=== PATIENT | male | born 1945 | race Caucasian/White ===

== ENCOUNTER 2016-07-13 05:03 | Day surgery (SDC) | payer MEDICARE ==
[2016-07-12 08:23] LABS: CALC OSMOLALITY 289 mosm/kg (275-300); CALCIUM 9.3 mg/dL (8.5-10.1); CARBON DIOXIDE 29.9 mmol/L (21.0-32.0); CHLORIDE - SERUM 107 mmol/L (98-107); GLUCOSE 99 mg/dL (74-106); POTASSIUM - SERUM 3.8 mmol/L (3.5-5.1); SODIUM 145 mmol/L (136-145); UREA NITROGEN 14 mg/dL (7-18); eGFR NON AFRICAN AMERICAN 78 mL/min (90-120)
[2016-07-12 08:25] LABS: APTT 27.8 SECONDS (22.8-39.4); INR 0.95 (0.85-1.17); PROTIME 12.5 SECONDS (11.6-15.0)
[2016-07-12 08:42] LABS: BASOPHILS 0.4 % (0.0-2.0); HEMATOCRIT 39.6 % (42.0-54.0); HEMOGLOBIN 13.5 g/dL (13.5-17.5); IMMATURE GRANULOCYTES 0.1 % (0-5); LYMPHOCYTES 19.3 % (15-50); MCH 32.5 pg (26.0-34.0); MCHC 34.1 g/dL (31.0-37.0); MCV 95.2 fL (80.0-100.0); MEAN PLATELET VOLUME 9.7 fL (7.4-10.4); NEUTROPHILS 68.2 % (40-80); PLATELET COUNT 306 10x3/uL (130-400); RBC 4.16 10x6/uL (4.20-6.10); RDW 13.3 % (11.5-14.5)
[~2016-07-13] VITALS: Ht 177.8 cm; Wt 77.1 kg
[~2016-07-13 05:03] MED LIST: BAYER CHEWABLE81 MG PO; CADUET 10 MG/201 TAB; PLAVIX75 MG PO; PRILOSEC20 MG PO; UROXATRAL10 MG PO
[2016-07-13 07:57] VITALS: BP 135/74; Ht 177.8 cm; Wt 77.1 kg
--- NOTE | 2016-07-13 10:56 | NUR ---
DR WOODALL VIEWED THE XRAY AFTER THE PROCEEDURE
--- NOTE | 2016-07-13 12:38 | NUR ---
Called to surgery per request of Dr Dsouza to assist with bronchoscope and biopsies.
--- NOTE | 2016-07-13 13:18 | NUR ---
1230--IV DC'D, PT UP TO DRESS AT THIS TIME. JOSE ARMANDO COTTRELL 1245--DISCHARGE INSTRUCTIONS GIVEN, PT VERBALIZES UNDERSTANDING. PT OFF UNIT VIA WC. JOSE ARMANDO COTTRELL
--- NOTE | 2016-08-22 10:17 | HP ---
PATIENT: ZAHEER REY MEDICAL RECORD: [id number] ACCOUNT: [id number] LOCATION:[facility] : 41 ADMISSION DATE: 07/13/16 HISTORY AND PHYSICAL EXAMINATION CHIEF COMPLAINT: Mass. HISTORY OF PRESENT ILLNESS: The patient has in an endobronchial mass in the takeoff of the left upper and left lower lobes. These were 3.5 cm in size. I am going to plan for an endoscopic resection by interventional bronchoscopy. I may use a basket, cold endoscopic biopsies or the argon plasma general pediatrician or variety of methods in order to remove this mass. This hopefully will be an excisional biopsy. The risks, possible complications and alternatives to procedure were explained to the patient. He elects to proceed. ALLERGIES: No known drug allergies. HOME MEDICATIONS: Amlodipine, atorvastatin, aspirin, Uroxatral, Plavix, Prilosec. The patient has been off Plavix since 07/10/2016. I have told the patient I want him to stay off Plavix for several days after his endoscopic procedure. SOCIAL HISTORY: Nonsmoker. PAST MEDICAL AND SURGICAL HISTORY: Peripheral vascular disease, peripheral arterial disease, gastroesophageal reflux, hypertension, carotid history of carotid arterial disease. REVIEW OF SYSTEMS: Negative for CVA or seizures. Negative for diabetes or thyroid problems. Negative for renal disease or hepatitis. PHYSICAL EXAMINATION: GENERAL: The patient does not appear acutely ill. He does not appear chronically ill. VITAL SIGNS: Reviewed. HEAD: External ears appear normal. EYES: Extraocular movements are intact. NECK: Trachea is midline. CHEST: No intercostal retractions. PULMONARY: Nonlabored and no stridor. ABDOMEN: Nontender. EXTREMITIES: No peripheral cyanosis. INTEGUMENT: No rash and no ulcerations. IMPRESSION: Endobronchial lesion, left lung. PLAN: Endoscopic resection. TRANSINT:[id number] Voice Confirmation ID: [id number] DOCUMENT ID: [id number] HISTORY AND PHYSICAL [id number] ZAHEER REY, KEN SOSA at 1017 CC: REINA SOSA MD, ERICK QUIROZ MD, ZAEHER DE SOUZA MD and ADELA,[id number] DICTATION DATE: 07/13/16 1101 [employer] MEDIA SPECIALIST: 07/13/16 1118 [facility] 07/13/16 [id number] [place] [address]
--- NOTE | 2016-08-22 10:17 | OP ---
PATIENT NAME: ZAHEER REY MEDICAL RECORD: [id number] :41 LOCATION:[facility] ADMISSION DATE: SURGEON: KEN WOODALL MD DATE OF OPERATION: 07/13/2016 PREOPERATIVE DIAGNOSIS: Endobronchial lesion takeoff of the left upper and left lower lobes. POSTOPERATIVE DIAGNOSIS: Endobronchial lesion takeoff of the left upper and left lower lobes, 3.5 mm. PROCEDURE: Bronchoscopic resection of a pedunculated lesion, 3.5 mm at the takeoff of the left mainstem and left lower lobe bronchus. This was removed utilizing cold endoscopic biopsies well as a basket 2.5 mm and then ablation of the base of the polyp with the argon plasma stage setting painter apprentice, which also controlled minimal amount of bleeding that was occurring. OPERATIVE COURSE: The patient was conveyed to the operating room electively on 07/13/2016. General anesthesia was induced by the anesthesia staff. An 8.5 mm endotracheal tube was inserted. A bronchoscopic adapter was applied. Through the bronchoscopic adapter, I advanced a well-lubricated therapeutic bronchoscope. I first examined the right lung and then the left lung. The mass was easily identifiable. I advanced a 2.4 mm urology basket. I was able to remove a portion of this pedunculated mass with the basket. I felt that additional biopsies should be cold biopsies. I biopsied the lesion several times until it appeared to be completely gone, so this was an excisional biopsy or resective procedure. I then cauterized the base of the lesion as it was bleeding and I want to ensure that any residual polypoid tissue had been removed. I utilized the argon plasma stage setting painter apprentice with the esophageal setting in the pulse mode. There was no further bleeding. I noted no evidence of a persistent polyp. The bronchoscope was then withdrawn under direct vision. The patient was then extubated and conveyed to post-anesthesia care unit where he was in stable condition. TRANSINT:[id number] Voice Confirmation ID: [id number] DOCUMENT ID: [id number] KEN WOODALL MD at 1017 CC: REINA SOSA MD, ERICK QUIROZ MD, ZAHEER DE SOUZA MD and ADELA,[id number] DICTATION DATE: 07/13/16 1104 TONGUE PRESSER: 07/13/16 1338 [facility] 07/13/16 [facility] [address] [place] [address]
== END 2016-07-13 12:45 | disposition home or self-care (01) ==
LOC: D.OPS 05:03 → D.PAN 09:45 → D.OPS 12:45
PROVIDERS: Anesthesiology
DX: J98.09 Other diseases of bronchus, not elsewhere classified (principal); I10 Essential (primary) hypertension; K21.9 Gastro-esophageal reflux disease without esophagitis

== ENCOUNTER → 2016-10-09 12:24 | Outpatient (CLI) | payer MEDICARE ==
[2016-07-13 07:57] VITALS: BMI 24.4
== END | disposition home or self-care (01) ==
LOC: D.US 12:24
DX: I70.223 Atherosclerosis of native arteries of extremities with rest pain, bilateral legs (principal)

== ENCOUNTER → 2016-11-01 09:53 | Outpatient (CLI) | payer MEDICARE ==
[2016-07-13 07:57] VITALS: BMI 24.4
== END | disposition home or self-care (01) ==
LOC: D.CT 10-30 09:00
DX: I73.9 Peripheral vascular disease, unspecified (principal)

== ENCOUNTER 2017-05-02 05:38 | Outpatient (CLI) | payer MEDICARE ==
--- NOTE | ~2017-05-02 | HEMODYNAMI ---
PATIENT:ZAHEER REY MEDICAL RECORD: [id number] : 41 LOCATION:[facility] ADMISSION DATE: 05/02/17 Generatedon:05/02/20179:43 Patient name: ZAHEER REY Patient #: [id number] SSN: DO B: 1945 Date of study: 05/02/2017 Page: Of Hemodynamic Procedure Report Patient Data Patient Demographics Procedure consent was obtained First Name: ZAHEER Gender: Male Last Name: CANDIDO : 1945 [facility] Initial: ESTEBAN Age: 72 year(s) Patient #: [id number] Race: Unknown Additional ID: [id number] Contact details Address: [address] State: [place] City: [place] Zip code: [address] Admission Admission Data Admission Date: 05/02/2017 Admission Time: 5:38 Procedure Procedure Types Cath Procedure Peripheral Cath Diagnostic Procedure Abd/Extremity Extremities Procedure Description Procedure Date Procedure Date: 05/02/2017 Procedure Start Time: 8:46 Procedure Staff Name Function Jon Barlow MD Performing Physician Carole Reyes RN Nurse Yanci Yanez RT Scrub Kb Mendez RT Monitor Procedure Data Cath Procedure Fluoroscopy Diagnostic fluoroscopy Total fluoroscopy Time: 3.1 time: 3.1 min min Diagnostic fluoroscopy Total fluoroscopy dose: 361 dose: 361 mGy mGy Contrast Material Contrast Material Type Amount (ml) Isovue 300 110 Entry Location Entry Primary Successful Side Size Upsize Upsize Entry Closure Succes sful Closure Location (Fr) 1 (Fr) 2 (Fr) Remarks Device Remarks Femoral Right 5 Fr Exoseal artery Diagnostic catheters Device Type Used For End Catheter Placement Merit ULTRA BOLUS FLUSH 5Fr 65CM catheter Merit Impress KA 2 5Fr 40CM catheter Procedure Medications Medication Administration Route Dosage Versed I.V. 1 mg Fentanyl I.V. 50 mcg Heparin Flush Bag added to field 2 bags (1000units/500ml NS) Heparin Flush Bag added to field 1 bags (1000units/500ml NS) unlisted medication added to field 20 Versed I.V. 1 mg Fentanyl I.V. 50 mcg Hemodynamics Rest Heart Rate: 62 (bpm) Snapshots Pre Cath Intra NCS Post Cath Vital Signs Time Heart Resp SPO2 etCO2 NIBP (mmHg) Rhythm Pain Sedation Rate (ipm) (%) (mmHg) Status Level (bpm) 8:39:43 72 12 97 29.5 130/71(106) NSR 0 (11) 10(A) , No pain 8:44:01 73 13 96 30.2 133/65(97) NSR 0 (11) 10(A) , No pain 8:48:15 74 14 95 27.9 129/67(100) NSR 0 (11) 10(A) , No pain 8:52:29 75 17 94 30.2 120/67(97) NSR 0 (11) 10(A) , No pain 8:56:43 72 10 95 26.4 110/59(90) NSR 0 (11) 10(A) , No pain 9:00:51 70 12 95 28.7 116/63(90) NSR 0 (11) 10(A) , No pain 9:05:01 69 12 95 27.9 114/62(93) NSR 0 (11) 10(A) , No pain 9:09:10 69 14 96 30.2 113/65(92) NSR 0 (11) 10(A) , No pain 9:13:20 71 11 95 32.5 116/61(90) NSR 0 (11) 10(A) , No pain 9:17:28 69 11 94 36.3 117/67(92) NSR 0 (11) 10(A) , No pain 9:21:40 71 12 96 30.2 116/62(96) NSR 0 (11) 10(A) , No pain 9:25:52 68 17 96 32.5 114/62(93) NSR 0 (11) 10(A) , No pain 9:30:02 69 12 96 31.7 116/60(95) NSR 0 (11) 10(A) , No pain 9:34:14 67 21 96 34.7 117/62(99) NSR 0 (11) 10(A) , No pain 9:38:26 69 16 96 31 119/62(94) NSR 0 (11) 10(A) , No pain 9:42:35 69 13 95 30.2 116/67(91) NSR 0 (11) 10(A) , No pain Medications Time Medication Route Dose Verified Delivered Reason Notes Effecti veness by by 8:45:28 lido added 20ml Jon Jon to vial Cain Barlow MD field 8:46:41 Versed I.V. 1 mg Jon Lam for Eric Barlow RN sedation 8:46:56 Fentanyl I.V. 50 Jon Carole for mcg Eric Barlow RN sedation 8:57:48 Heparin Flush added 2 Jon Webb Bag to bags Cain Barlow MD (1000units/500ml field SOSA NS) 8:58:01 Heparin Flush added 1 Jon Webb Bag to bags Cain Barlow MD (1000units/500ml field SOSA NS) 9:08:56 Versed I.V. 1 mg Jon Lma for Eric Barlow RN sedation 9:09:07 Fentanyl I.V. 50 Jon Carole for Eric Fuentes RN sedation Procedure Log Time Note 8:09:48 Kb Mendez RT (R) (CV) sent for patient. Start room use. 8:09:55 Time tracking: Regular hours 8:10:03 Plan of Care:Hemodynamics will remain stable., Cardiac rhythm will remain stable., Comfort level will be maintained., Respiratory function will remain adequate., Patient/ family verbilizes understanding of procedure., Procedure tolerated without complication., Recovers from procedure without complications.. 8:10:09 Patient received from Outpatients to IR Alert and oriented. Tansferred to table in Supine position. 8:10:12 Signed procedure consent form obtained from patient. 8:10:13 Correct patient and procedure confirmed by team. 8:10:14 ECG and BP/O2 sat monitors applied to patient. 8:10:15 Full Disclosure recording started 8:10:15 8:10:19 H&P Date Dictated: 05/02/2017 H&P Addendum completed by physician on day of procedure. (MUST COMPLETE FOR ALL OUTPATIENTS). 8:10:22 Pre-procedure instructions explained to patient. 8:10:23 Pre-op teaching completed and patient verbalized understanding. 8:10:32 Family in patients room. 8:10:35 Patient NPO since Midnight. 8:10:39 Is the patient allergic to Iodine/contrast media? No. 8:10:40 Is patient on blood thinner?Yes 8:10:42 ACC The patient was administered the following blood thiners within the last 24 hours: ACCPlavix 8:10:45 Patient diabetic? No. 8:10:46 8:10:46 ----Pre-sedation anethsthesia assessment.---- 8:10:54 Previous problem with sedation/anesthesia? No ? 8:10:56 Snore? No 8:10:57 Sleep apnea? No 8:10:59 Deviated septum? No 8:11:00 Opens mouth fully? Yes 8:11:01 Sticks out tongue? Yes 8:11:03 Airway obstruction? No ? 8:11:06 8:11:06 Dentures? No ? 8:14:43 Pre procedure: right dorsailis pedis pulse 1+ Palpable, but thready & weak; easily obliterated 8:14:47 Pre procedure: left dorsailis pedis pulse 1+ Palpable, but thready & weak; easily obliterated 8:14:54 Pre procedure: right posterior tibial pulse Doppler 8:15:03 Pre procedure: left posterior tibial pulse 1+ Palpable, but thready & weak; easily obliterated 8:15:10 Patient pain scale 0/10 no pain. 8:15:21 IV patent on arrival in right forearm with 0.9% NaCl at O. 8:15:26 Use device set IR Diagnostic 8:15:28 Sterile Angiographic Pack opened to sterile field. 8:15:28 Bag Decanter opened to sterile field. 8:15:29 Acist Manifold opened to sterile field. 8:15:30 Acist Hand Control opened to sterile field. 8:15:30 Acist Syringe opened to sterile field. 8:38:28 Right groin area was prepped with chlora-prep and draped in sterile fashion 8:38:30 Alarms reviewed by R. N. 8:38:31 Sharps counted by scrub and verified by R.N. 8:38:34 Vital chart was started 8:38:35 Baseline sample Acquired. 8:38:38 Rhythm: sinus rhythm 8:44:46 Physician arrived 8:44:46 --------ALL STOP TIME OUT------ 8:44:47 Final Timeout: patient, procedure, and site verified with staff and physician. All members of the team are in agreement. 8:44:50 Right groin site verified by team. 8:44:55 Sedation plan: IV Moderate Sedation Versed, Fentanyl 8:45:28 lido 20ml vial added to field was administered by Jon Barlow MD; ; 8:45:55 Procedure started. 8:46:13 Local anesthetic to right femoral artery with Lidocaine 1% by Jon Barlow MD.INITIAL ACCESS ONLY 8:46:19 Efe DOC .035 guide wire opened to sterile field. 8:46:19 Terumo 5Fr [place] Sheath opened to sterile field. 8:46:20 Micropuncture VSI 4FR kit opened to sterile field. 8:46:20 Efe HUGHES 260 guide wire opened to sterile field. 8:46:20 [place] Sci Amplatz Super Stiff 75CM guide wire opened to sterile field. 8:46:21 TUBING, CONTRAST INJCTN HI PRES opened to sterile field. 8:46:34 A 5 Fr sheath was inserted into the Right Femoral artery 8:46:41 Versed 1 mg I.V. was administered by Carole Reyes RN; for sedation; 8:46:56 Fentanyl 50 mcg I.V. was administered by Carole Reyes RN; for sedation; 8:49:28 A [employer] ULTRA BOLUS FLUSH 5Fr 65CM catheter was advanced over the wire and used for . 8:57:48 Heparin Flush Bag (1000units/500ml NS) 2 bags added to field was administered by Jon Barlow MD; ; 8:58:01 Heparin Flush Bag (1000units/500ml NS) 1 bags added to field was administered by Jon Barlow MD; ; 9:02:23 Micropuncture VSI 4FR kit opened to sterile field. 9:05:18 A [employer] Impress KA 2 5Fr 40CM catheter was advanced over the wire and used for . 9:08:56 Versed 1 mg I.V. was administered by Carole Reyes RN; for sedation; 9:09:07 Fentanyl 50 mcg I.V. was administered by Carole Reyes RN; for sedation; 9:11:01 Terumo ANGLE 180L glide wire opened to sterile field. 9:25:41 Cordis 5Fr Exoseal opened to sterile field. 9:25:54 Sheath removed intact; hemostasis achieved with Exoseal to the Right Femoral artery. 9:25:57 Procedure ended.(Physican Out) 9:26:20 Fluoroscopy time 03.10 minutes. 9:26:25 Flurop Dose total: 361 9:26:25 Fluoroscopy dose: 361 mGy 9:26:31 Contrast amount:Isovue 300 110ml. 9:26:33 Sharps counted by scrub and verified by R.N. 9:26:35 Insertion/operative site no bleeding no hematoma. 9:26:44 Post-op/insertion site Right Femoral artery dressed using a 4 x 4 and Tegaderm. 9:26:51 Post right femoral artery:stable 9:27:09 Post Procedure Pulses reassessed and unchanged 9:27:18 Post procedure rhythm: unchanged. 9:27:20 Post procedure instruction explained to patient.Patient verbalizes understanding. 9:27:21 Patient needs reinforcement of post procedure teaching. 9:28:29 Procedure and supply charges have been captured, reviewed, submitted and are correct. 9:43:04 Report given to Outpatients. 9:43:09 Patient transfered to Outpatients with Stretcher. 9:43:49 Vital chart was stopped Device Usage Item Name Manufacture Quantity Catalog Number Hospital Part Current Min imal Lot# / Charge Number Stock Stock Serial# Code Sterile Cardinal 1 [id number] 5 Angiographic Health Pack Bag Decanter Microtek 1 [id number] 50596 529358 5 Medical Inc. Acist Acist 1 27586 812231 539807 905935 5 Manifold Medical Systems Inc Acist Hand Acist 1 41703 809113 400868 106301 5 Control Medical Systems Inc Acist Syringe Acist 1 56607 579904 889806 248893 20 Medical Systems Inc Cook DOC .035 Cook Medical 1 [id number] 956134 538284 5 [id number] guide wire Terumo 5Fr Terumo 1 [id number] 085584 764634 296034 40 [place] Sheath Micropuncture VSI VASCULAR 2 7266V 831557 303591 5 VSI 4FR kit SOLUTIONS Cook HUGHES Cook Medical 1 [id number] 425472 538922 5 [id number] 260 guide wire [place] [employer] [place] 1 [id number] 968237 612669 621204 5 [id number] Amplatz Super Scientific Stiff 75CM guide wire TUBING, Merit 1 [id number] 430305 270181 587801 5 CONTRAST Medical INJCTN HI PRES Merit ULTRA Merit 1 [id number] 840968 938335 5 BOLUS FLUSH Medical 5Fr 65CM catheter Merit Impress Merit 1 [id number] 800916 269890 5 KA 2 5Fr 40CM Medical catheter Terumo ANGLE Terumo 1 [id number] 606136 730211 368908 5 180L glide wire Cordis 5Fr Cardinal 1 EX500 814540 662689 095439 10 [id number] [facility] Health Signature Audit [place] Stage Time Signature Unsigned Intra-Procedure 05/02/2017 Kb 9:43:39 AM [place] RT (R) (CV) Signatures Monitor : Kb Signature : Andrea RT Date : Time : [address] [place] [address]
[2017-05-02 06:46] VITALS: BP 131/73; BMI 24.4
[2017-05-02 07:19] LABS: ANION GAP 15.1 mmol/L (8-16); CALCIUM 8.6 mg/dL (8.5-10.1); CARBON DIOXIDE 25.5 mmol/L (21.0-32.0); CREATININE - SERUM 1.2 mg/dL (0.6-1.3); POTASSIUM - SERUM 3.6 mmol/L (3.5-5.1)
[2017-05-02 07:21] LABS: INR 1.06 (0.85-1.17); PROTIME 13.6 SECONDS (11.6-15.0)
[2017-05-02 07:55] LABS: BASOPHILS 0.4 % (0-2); EOSINOPHILS 3.4 % (0-7); HEMOGLOBIN 13.4 g/dL (13.5-17.5); IMMATURE GRANULOCYTES 0.1 % (0-5); MCH 33.3 pg (26.0-34.0); MCHC 34.4 g/dL (31.0-37.0); MCV 96.8 fL (80.0-100.0); MONOCYTES 14.1 % (2-11); PLATELET COUNT 293 10x3/uL (130-400); RBC 4.03 10x6/uL (4.20-6.10); RDW 12.4 % (11.5-14.5); WBC 7.1 10x3/uL (4.8-10.8)
--- NOTE | 2017-05-02 11:35 | NUR ---
1000--ALL VITAL SIGNS CHARTED ON POST PROCEDURE VITAL SIGN SHEET ON CHART. JOSE ARMANDO COTTRELL
--- NOTE | 2017-05-02 17:26 | NUR ---
1000--ALL VITAL SIGNS CHARTED ON POST PROCEDURE VITAL SIGN SHEET ON CHART. JOSE ARMANDO COTTRELL 1442--IV DC'D. JOSE ARMANDO COTTRELL 1500--DISCHARGE INSTRUCTIONS GIVEN, PT VERBALIZES UNDERSTANDING. PT OFF UNIT VIA WC. JOSE ARMANDO COTTRELL
== END 2017-05-02 15:00 | disposition home or self-care (01) ==
LOC: D.OPS 05:38
PROVIDERS: General Practice
DX: I70.211 Atherosclerosis of native arteries of extremities with intermittent claudication, right leg (principal); Z01.812 Encounter for preprocedural laboratory examination

== ENCOUNTER → 2017-05-07 12:20 | Outpatient (CLI) | payer MEDICARE ==
[2017-05-02 06:46] VITALS: BMI 24.4
== END | disposition home or self-care (01) ==
LOC: D.US 12:20
DX: I65.23 Occlusion and stenosis of bilateral carotid arteries (principal)

== ENCOUNTER → 2017-07-16 13:55 | Outpatient (CLI) | payer MEDICARE | END | disposition home or self-care (01) | LOC: D.MRI 09:00 | DX: M54.16 Radiculopathy, lumbar region (principal) ==

== ENCOUNTER 2017-08-13 08:21 | Day surgery (SDC) | payer MEDICARE ==
[~2017-08-13] VITALS: Ht 177.8 cm; Wt 77.1 kg
--- NOTE | ~2017-08-13 | HP ---
PATIENT: ZAHEER REY MEDICAL RECORD: [id number] ACCOUNT: [id number] LOCATION:D.OPS : 43 ADMISSION DATE: 08/13/17 HISTORY AND PHYSICAL EXAMINATION ZAHEER Martin (72yo, M) ID# [id number]. Date/Time07/18/2017 09:70NQMHM1943[facility] Dept.NPP_[facility] ClinicProviderEDSABRINA CHAPMAN MDInsuranceMed Primary: [employer] (MEDICARE REPLACEMENT/ADVANTAGE - PPO) Insurance # : [id number] Policy/Group # : [id number] Referring Provider Name : ZAHEER DE SOUZA Employer Name : RETIRED Prescription: CMX - Member is eligible. Chief Complaint Followup: Carotid artery occlusion Followup: Carcinoid bronchial adenoma Followup: Degeneration of lumbar intervertebral disc s/p bronchoscopy/[facility] 05/07/16 s/p art w int/Dr Barlow 05/02/17 RTC MRI lumbar spine/for bronch November 2017 Patient's Care Team Referring Provider (): ZAHEER DE SOUZA: [address] [place] [address] , [address], [place] [address], , Other: CHASE CHAPMAN MD: [address] [facility] [address], [place] [address], , Patient's Pharmacies [facility] [address] [facility] [address], [facility] [place] [address], , Vitals BP:108/62 sitting L arm 07/18/2017 10:04 amBP Cuff Size:adult 07/18/2017 10:04 amHR:80,reg 07/18/2017 10:04 amHt:5 ft 10 in 07/18/2017 10:02 amWt:175 lbs 07/18/2017 10:04 amNotes:here for MRI results 07/18/2017 10:05 amBMI:25.1 07/18/2017 10:04 amAllergies Reviewed Allergies NKDAMedications Reviewed Medications Adult Low Dose Aspirin 81 mg tablet,delayed release Take 1 tablet(s) every day by oral route.05/18/14 enteredLoren Tellalfuzosin ER 10 mg tablet,extended release 24 hr Take 1 tablet(s) every day by oral route.04/25/17 filledCaremarkamlodipine 10 mg-atorvastatin 20 mg tablet Take 1 tablet(s) every day by oral route.05/17/17 filledCaremarkclopidogrel 75 mg tablet TAKE ONE TABLET BY MOUTH EVERY DAY06/05/17 filledCaremarkFlucelvax Quad 2409-2168 60 mcg (15 mcg x 4)/0.5 mL IM byrradvrzj14/24/18 filledCaremarkomeprazole 20 mg capsule,delayed release Take 1 capsule(s) every day by oral route for 90 days.05/03/17 filledCaremarkPrevnar 13 (PF) 0.5 mL intramuscular /24/18 filledCaremark Some medications listed in Document: #[id number] could not be added to this patient's chart. Please review this document and add these medications to the patient's chart manually as needed. Vaccines Reviewed Vaccines HISTORY AND PHYSICAL [id number] ZAHEER REY Vaccine TypeDateAmt.RouteSiteLot #Mfr.Exp. DateDate on VISVIS EvcoiLryblrnqdaAnfynqbdr37/18/160.5 mLIntramuscularLeft Mzlrdey08fb6HpiopPfxbeQgepg36 //12/1509/18/16Kim MorganSome vaccines listed in Document: #[id number] could not be added to this patient's chart. Please review this document and add these vaccines to the patient's chart manually as needed. Problems Reviewed Problems Degeneration of lumbar intervertebral disc - Onset: 05/09/2017 Peptic ulcer Gastroesophageal reflux disease Carcinoid bronchial adenoma Infected sebaceous cyst Carcinoma of prostate Carotid artery occlusion Pure hypercholesterolemia Carotid atherosclerosis Peripheral vascular disease Carotid bruit Essential hypertension Carotid artery stenosis Family History Reviewed Family History Mother- Heart diseaseBrother- Heart diseasefather - Alzheimer'sSocial History Reviewed Social History General Education: 4 Year College Marital status: Exercise level: Occasional Smoking Status: Former smoker Smoker (1 PPD) Alcohol intake: Moderate Caffeine intake: Moderate Tobacco-years of use: 45 Surgical History Reviewed Surgical History Bronchoscopy w/ biopsy - 07/13/2016 Bronchoscopy w/ biopsy - 07/13/2016 Bronchoscopy w/ biopsy - 07/13/2016 Bronchoscopy w/ biopsy - 07/13/2016 Bronchoscopy w/ biopsy - 07/13/2016 Carotid Endarterectomy - 06/24/2015 Excision, sebaceous cyst - 06/11/2014 Vascular Surgery - 2010 - fem-fem bypass Past Medical History Reviewed Past Medical History Bladder Problems: Y - incomplete emptying, frequency Cancer: Y - prostate - radiation in 2010 Coronary Artery Disease: Y GERD: Y High Blood Pressure: Y HISTORY AND PHYSICAL [id number] ZAHEER REY Notes: YUNIOR Documents for Discussion N/A Screening None recorded. HPI Peripheral Vascular Disease Reported by patient. Severity: not limiting Associated Symptoms: no weakness; no numbness; no paresthesias; no skin discoloration; no fever lumbar disc disease Bronchial adenoma Carotid artery disease ROS Patient reports no fever, no night sweats, no significant weight gain, no significant weight loss, and no exercise intolerance. He reports no dry eyes, no irritation, and no vision ch sherrie. He reports no difficulty hearing and no ear pain. He reports no frequent nosebleeds and no nose/sinus problems. He reports no sore throat, no bleeding gums, no snoring, no dry mouth, no mouth ulcers, no oral abnormalities, and no teeth problems. He r eports no chest pain, no arm pain on exertion, no shortness of breath when walking, no shortness of breath when lying down, no palpitations, and no known heart murmur. He reports no cough, no wheezing, no shortness of breath, and no coughing up blood. He r eports no abdominal pain, no vomiting, normal appetite, no diarrhea, not vomiting blood, no nausea, and no constipation. He reports no incontinence, no difficulty urinating, no hematuria, and no increased frequency. He reports no muscle aches, no muscle w e akness, no arthralgias/joint pain, no back pain, and no swelling in the extremities. He reports no abnormal mole, no jaundice, and no rashes. He reports no loss of consciousness, no weakness, no numbness, no seizures, no dizziness, and no headaches. He re p orts no depression, no sleep disturbances, feeling safe in relationship, and no alcohol abuse. He reports no fatigue. He reports no swollen glands and no bruising. He reports no runny nose, no sinus pressure, no itching, no hives, and no frequent sneezing . Physical Exam Patient is a 72-year-old male. Constitutional: General Appearance well nourished and developed and healthy-appearing. Level of Distress NAD. Ambulation ambulating normally. Cardiovascular: Apical Impulse not displaced or no thrill. Heart Auscultation normal s1 and s2; no murmurs, rubs, or gallops; and RRR. Arterial Pulses no abdominal aorta bruits, femoral bruits, or popliteal bruits and 2+ bilateral, carotid 2+ bilateral, femoral 2+ bilateral, popliteal 2+ bilateral, and dorsalis pedis diminished (on the right). Edema no edema or varicosities. Lungs: Repiratory Effort no dyspnea. Percussion no hyperresonance or dullness or flatness. Auscultation no wheezing, rhonchi, or rales / crackles and breathing sounds normal, good air movement, and CTA except as noted. Abdomen: Bowl Sounds normal. Inspection and Palpation no tenderness, guarding, masses, or rebound tenderness and soft and non-distended. Liver non-tender and no hepatomegaly. Spleen non-tender and no splenomegaly. Hernia none palpable. Ears, Nose, Throat: Hearing grossly normal hearing. Nose no external nose lesion. HISTORY AND PHYSICAL [id number] ZAHEER REY Lips, Teeth, and Gums no mouth or lip ulcers. Oropharynx: moist mucous membranes. Musculoskeletal System: Gait And Stance normal gait and stance. Digits and Nails n ormal nails and no cyanosis. Joints, Bones, and Muscles normal strength and movement of all extremities. Neurologic: Cranial Nerves grossly intact. Reflexes DTRs 2+ bilaterally throughout. Sensation grossly intact. Lymph Nodes: Lymph Nodes no cervical LAD, supraclavicular LAD, axillary LAD, or inguinal LAD. Eyes: Lids and Conjunctivae no discharge or pallor and non-injected. Pupils PERRLA. Cornea grossly intact. EOM EOMI. Lens clear. Sclerae non-icteric. Neck: Neck no masses, enlarged lymph nodes, or carotid bruits and supple and trachea midline. Thyroid no enlargement or nodules and non-tender. Skin: Inspection and Palpation no rash, lesions, ulcers, jaundice, or abnormal nevi. Assessment / Plan severe lumbar disc disease Carotid artery disease stable Need bronchoscopy for follow-up bronchial adenoma 1. Carotid artery occlusion - total occlusion of the right internal carotid artery Status post left carotid endarterectomy I65.23: Occlusion and stenosis of bilateral carotid arteries 2. 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 Degeneration of lumbar intervertebral disc M51.36: Other intervertebral disc degeneration, lumbar region Discussion Notes schedule bronchoscopy CHASE CHAPMAN MD at 1409 CC: [id number] DICTATION DATE: 07/18/1730 [employer] SUPERVISOR: DM 08/12/17 0951 DEP SDC 08/13/17 [facility] [address] [place] [address]
--- NOTE | ~2017-08-13 | OP ---
PATIENT NAME: ZAHEER REY MEDICAL RECORD: [id number] :41 LOCATION:[facility] ADMISSION DATE: SURGEON: FIDEL SHARIF MD DATE OF OPERATION: 08/13/2017 SURGEON: Fidel Sharif MD ANESTHESIA: General, Dr. Juarez. OPERATION PERFORMED: Flexible fiberoptic bronchoscopy. PREOPERATIVE DIAGNOSIS: History of carcinoid tumor of left bronchus. POSTOPERATIVE DIAGNOSIS: History of carcinoid tumor of left bronchus. INDICATION FOR OPERATION: Follow up bronchial adenoma. ESTIMATED BLOOD LOSS: Less than 3 cc. FINDINGS AT OPERATION: Recurrent bronchial adenoma of distal left main bronchus. Biopsies sent to pathology. DESCRIPTION OF PROCEDURE: After informed consent and adequate preoperative medication evaluation, the patient was brought to the operating room, placed on the table in the supine position. After induction of general anesthesia and application of appropriate monitoring devices, the bronchoscope was passed through the endotracheal tube and the tracheobronchial tree examined. The grisel was sharp. The right tracheobronchial tree was normal. The scope was then inserted into the left main stem bronchus, which was normal until its distal portion and at the bifurcation of the upper and the lower lobe. There is a recurrence of the bronchial adenoma, this is a very small tumor; however, it is recurrent at the same place. A biopsy was done, there was profuse bleeding with the biopsy that subsided spontaneously. The specimens were sent to pathology. The left tracheobronchial tree was normal other than the lesion and there was no active bleeding. The scope was withdrawn. The patient was extubated, tolerated the procedure well and was transferred to the postanesthesia recovery in satisfactory condition. TRANSINT:[id number] Voice Confirmation ID: [id number] DOCUMENT ID: [id number] FIDEL SHARIF MD at 1409 CC: [id number] DICTATION DATE: 08/13/17 1114 [employer]OT[employer] ADMINISTRATIVE ASSISTANT: 08/13/17 1132 [facility] 08/13/17 [place] [id number]
[2017-08-13 09:28] VITALS: BP 133/67; Ht 177.8 cm; Wt 77.1 kg
[2017-08-13 09:46] LABS: HEMATOCRIT 38.5 % (42.0-54.0); HEMOGLOBIN 13.4 g/dL (13.5-17.5); LYMPHOCYTES 25.1 % (15-50); MCH 33.4 pg (26.0-34.0); MCHC 34.8 g/dL (31.0-37.0); MEAN PLATELET VOLUME 9.4 fL (7.4-10.4); NEUTROPHILS 63.9 % (40-80); PLATELET COUNT 256 10x3/uL (130-400); RBC 4.01 10x6/uL (4.20-6.10); WBC 5.8 10x3/uL (4.8-10.8)
[2017-08-13 09:54] LABS: APTT 27.8 SECONDS (22.8-39.4); INR 1.07 (0.85-1.17); PROTIME 13.5 SECONDS (11.6-15.0)
[2017-08-13 10:02] LABS: ALBUMIN 3.6 g/dL (3.4-5.0); ANION GAP 9.9 mmol/L (8-16); BILIRUBIN - TOTAL 0.7 mg/dL (0.2-1.3); CALCIUM 8.7 mg/dL (8.5-10.1); CARBON DIOXIDE 28.7 mmol/L (21.0-32.0); CREATININE - SERUM 1.3 mg/dL (0.6-1.3); POTASSIUM - SERUM 3.6 mmol/L (3.5-5.1); PROTEIN - SERUM 6.7 g/dL (6.4-8.2)
== END 2017-08-13 13:30 | disposition home or self-care (01) ==
LOC: D.OPS 08:21
PROVIDERS: Internal Medicine Cardiovascular Disease
DX: D38.1 Neoplasm of uncertain behavior of trachea, bronchus and lung (principal); Z87.891 Personal history of nicotine dependence; K21.9 Gastro-esophageal reflux disease without esophagitis; I25.10 Atherosclerotic heart disease of native coronary artery without angina pectoris; I65.29 Occlusion and stenosis of unspecified carotid artery; E78.00 Pure hypercholesterolemia, unspecified; I73.9 Peripheral vascular disease, unspecified; I10 Essential (primary) hypertension; Z85.46 Personal history of malignant neoplasm of prostate; Z79.82 Long term (current) use of aspirin; Z79.899 Other long term (current) drug therapy; Z01.812 Encounter for preprocedural laboratory examination

== ENCOUNTER → 2017-08-20 08:55 | Outpatient (CLI) | payer MEDICARE ==
[2017-08-13 09:28] VITALS: BMI 24.4
== END | disposition home or self-care (01) ==
LOC: D.CT 08:55
DX: C7A.090 Malignant carcinoid tumor of the bronchus and lung (principal)

== ENCOUNTER → 2017-11-26 09:30 | Outpatient (CLI) | payer MEDICARE ==
[2017-08-13 09:28] VITALS: BMI 24.4
== END | disposition home or self-care (01) ==
LOC: D.CT 09:30
DX: I73.9 Peripheral vascular disease, unspecified (principal)